=== PATIENT | female | born 1985 | race African-American/Black ===

== ENCOUNTER 2021-08-15 13:08 | Outpatient (CLI) | payer OTHER, SELFPAY ==
--- NOTE | ~2021-08-15 | MMUS_ITS ---
EXAMINATION: MM diagnostic sinan BI w whitney, US breast BI complete HISTORY: Palpable left breast mass TECHNIQUE: Additional 3-D tomosynthesis images of the breasts were performed and synthetic 2-D images were generated. CAD analysis was submitted and interpreted. High resolution complete bilateral breas t ultrasound was performed. COMPARISON: None BREAST PARENCHYMAL COMPOSITION: The breasts are heterogenously dense, which may obscure small masses FINDINGS: MAMMOGRAPHIC FINDINGS: There is a mass in the upper outer quadrant of the right breast measuring approximately 3.2 cm. There are multiple masses in the left breast centered in the upper central left breast and upper outer uzair drant. The largest in the upper central breast measures approximately 4.2 cm. ULTRASOUND: Complete bilateral US of all 4 quadrants of the breasts and retroareolar region was reviewed. Right breast ultrasound: At 10:00, 1 cm from the nipple there is a cyst measuring 2.9 x 2.6 x 2.1 cm corresponding to the mammographic mass. Left breast ultrasound: There are multiple cysts of the left breast, largest at 12:00, 1 cm from the nipple measuring 3.8 x 3.3 x 2.9 cm corresponding to the mammographic finding. At 4:00, 1 cm from the nipple there is an oval circumscribed hypoechoic mass with parallel orientation, posterior acoustic enhancement and no internal vascularity measuring 1.4 x 1 x 0.6 cm, likely benign. IMPRESSION: 1. No evidence for malignancy in the right breast. Probable benign left breast mass at 4:00, 1 cm fro m the nipple measuring up to 1.4 cm. 2. Recommend 6 month follow-up Limited left breast ultrasound BI-RADS category 3, probably benign findings. Reviewed, dictated and finalized at location A. [facility] IMPRESSION: 1. No evidence for malignancy in the right breast. Probable benign left breast mass at 4:00, 1 cm from the nipple measuring up to 1.4 cm. 2. Recommend 6 month follow-up Limited left breast ultrasound BI-RADS category 3, probably benign findings.
== END 2021-08-15 13:09 | disposition home or self-care (01) ==
LOC: ANHIMG 13:11
DX: N63.20 Unspecified lump in the left breast, unspecified quadrant (principal); R92.8 Other abnormal and inconclusive findings on diagnostic imaging of breast
CPT/HCPCS: 76641; 77062; 77066; G0279